=== PATIENT | female | born 1955 | race Caucasian/White ===

== ENCOUNTER 2019-04-04 12:58 | Emergency (ER) | payer OTHER ==
[~2019-04-04] VITALS: Ht 170.2 cm; Wt 69.9 kg
--- OUTSIDE RECORDS SUMMARY | 2019-04-04 13:01 | XMS REPORT | Continuity of Care Document ---
Author Author [facility] Interface Address Unknown Phone Unavailable Problems Problem Status Onset Date Classification Date Reported Comments Source Other chronic pain Active Diagnosis 12/10/2017 [facility] Gastroesophageal reflux disease without esophagitis Active Diagnosis 12/10/2017 [facility] Hypothyroidism Active Diagnosis 12/10/2017 [facility] Primary Anxiety and depression Active Problem 12/10/2017 [facility] Primary Psoriasis Active Problem 12/10/2017 [facility] Primary Psoriatic arthritis Active Problem 12/10/2017 [facility] Primary Pain, unspecified Active Problem 12/10/2017 [facility] Primary Medications Medication Details Route Status Patient Instructions Ordering Provider Order Date Source Lexapro 1 tablet Orally Active 10 mg Orally Once every morning [facility] 12/09/2017 [facility] Amitriptyline HCl 1 tablet Orally Active 10 mg Orally Once every evening [facility] 12/09/2017 [facility] Primary Lomotil not defined NA Active [facility] Promethazine HCl 1 tablet as needed Orally Active 25 MG Orally every 12 hrs [facility] Alprazolam 1 tablet Orally Active 1 MG Orally Twice a day [facility] [place] 1 tablet as needed Orally Active 10-325 MG Orally every 6 hrs [facility] Ambien CR 1 tablet at bedtime as needed Orally Active 12.5 MG Orally Once a day [facility] Synthroid 1 tablet on an empty stomach in the morning Orally Active 25 MCG Orally Once a day [facility] Cosentyx not defined NA Active 350 mg daily [facility] Vyvanse 1 capsule in the morning Orally Active 70 MG Orally Once a day [facility] Omeprazole 1 capsule Orally Active 10 MG Orally Once a day [facility] Primary Allergies, Adverse Reactions, Alerts Substance Category Reaction Severity Reaction type Status Date Reported Comments Source N.K.D.A. Adverse Reaction Info Not Available Adverse Reaction Active 12/09/2017 [facility] Immunizations Immunization Date Given Site Status Last Updated Comments Source Results Order Name Results Value Reference Range Date Interpretation Comments Source Vital Signs Vital Sign Value Date Comments Source Weight 152.0 12/09/2017 [facility] Height 68 12/09/2017 [facility] Temperature Oral (F) 97.8 F 12/09/2017 [facility] Heart Rate 92 12/09/2017 [facility] Diastolic (mm Hg) 88 12/09/2017 [facility] Systolic (mm Hg) 139 12/09/2017 [facility] Primary Encounters Location Location Details Encounter Type Encounter Number Reason For Visit Attending Provider ADM Date DC Date Status Source Procedures Procedure Code Date Perfomer Comments Source
--- OUTSIDE RECORDS SUMMARY | 2019-04-04 13:01 | XMS REPORT ---
Author Author Delilah Nguyen [facility] eClinicalWorks Address Unknown Phone Unavailable Care Team Providers Care Radioactive Waste Disposal Dispatcher Name Role Phone Delilah Nguyen CP Unavailable Allergies, Adverse Reactions, Alerts Substance Reaction Event Type N.K.D.A. Info Not Available Non Drug Allergy Problems Problem Type Condition Code Onset Dates Condition Status Assessment Other chronic pain G89.29 Active Assessment Gastroesophageal reflux disease without esophagitis K21.9 Active Assessment Hypothyroidism (acquired) E03.9 Active Problem Anxiety and depression F41.8 Active Problem Other chronic pain G89.29 Active Problem Psoriasis L40.9 Active Problem Hypothyroidism (acquired) E03.9 Active Problem Psoriatic arthritis L40.50 Active Problem Pain, unspecified R52 Active Problem Gastroesophageal reflux disease without esophagitis K21.9 Active Assessment Anxiety and depression F41.8 Active Assessment Psoriatic arthritis L40.50 Active Assessment Psoriasis L40.9 Active Assessment Pain, unspecified R52 Active Medications Medication Code System Code Instructions Start Date End Date Status Dosage Lomotil [facility] [address]-20 Active not defined Promethazine HCl [facility] 35215596048 25 MG Orally every 12 hrs Active 1 tablet as needed Alprazolam [facility] 23063004061 1 MG Orally Twice a day Active 1 tablet [place] [facility] 33992015104 10-325 MG Orally every 6 hrs Active 1 tablet as needed Ambien CR [facility] 90735631496 12.5 MG Orally Once a day Active 1 tablet at bedtime as needed Synthroid [facility] 17342154798 25 MCG Orally Once a day Active 1 tablet on an empty stomach in the morning Cosentyx [facility] [address]-30 350 mg daily Active not defined Lexapro [facility] 74928262772 10 mg Orally Once every morning Dec 09, 2017 Active 1 tablet Amitriptyline HCl [facility] 20257177299 10 mg Orally Once every evening Dec 09, 2017 Active 1 tablet Vyvanse [facility] 22641507370 70 MG Orally Once a day Active 1 capsule in the morning Omeprazole [facility] 81423610655 10 MG Orally Once a day Active 1 capsule Vital Signs Date/Time: Dec 09, 2017 BMI 23.11 Index Weight 152.0 lbs Height 68 in Temperature 97.8 F Cardiac Monitoring Heart Rate 92 /min Blood Pressure Diastolic 88 mm Hg Blood Pressure Systolic 139 mm Hg Results No Known Results Summary Purpose eClinicalWorks Submission
--- OUTSIDE RECORDS SUMMARY | 2019-04-04 13:01 | XMS REPORT | Clinical Summary ---
Author Author [facility] Address Unknown Phone Unavailable Care Team Providers Care Roadmaster Name Role Phone Asked, No Pcp PCP Unavailable Allergies No Known Allergies Medications End Date Status Medication Sig Dispensed Refills Start Date Active zolpidem CR (AMBIEN CR) Take by 0 12.5 MG CR tablet mouth. Active alendronate (FOSAMAX) 35 Take 35 mg by 1 MG tablet mouth once a 6 week. Active ALPRAZolam (XANAX) 1 MG Take 1 mg by 0 tablet mouth 3 6 (three) times a day. Active celecoxib (CeleBREX) 200 0 MG capsule 6 Active diphenoxylate-atropine Take 1 tablet 0 (LOMOTIL) 2.5-0.025 mg by mouth once 6 per tablet daily. Active VITAMIN D2 50,000 unit TAKE 1 1 capsule CAPSULE BY 6 MOUTH WEEKLY Active estradiol (ESTRACE) 1 MG Take 1 mg by 0 tablet mouth once 6 daily. Active folic acid (FOLVITE) 1 MG Take 1 mg by 1 tablet mouth once 6 daily. Active liothyronine (CYTOMEL) 5 Take 5 mcg by 0 MCG tablet mouth once 6 daily. Active VYVANSE 50 mg capsule Take 50 mg by 0 mouth once 6 daily. Active methocarbamol (ROBAXIN) Take 750 mg 0 750 MG tablet by mouth 2 6 (two) times a day. Active tramadol-acetaminophen TAKE 1-2 1 (ULTRACET) 37.5-325 mg TABLET(S) BY 6 per tablet MOUTH EVERY 4 TO 6 HOURS NEEDED FOR PAIN Active gabapentin (NEURONTIN) 0 300 mg capsule 8 Active MOVANTIK 25 mg tablet 1 tablet 8 Active promethazine (PHENERGAN) 0 25 MG tablet 8 04/06/2018 aspirin (ECOTRIN) 81 MG Take 1 tablet 84 tablet 0 enteric coated tablet (81 mg total) 8 by mouth 2 (two) times a day for 42 days. Active Problems Problem Noted Date Osteoarthritis of right hip 02/22/2018 Osteoarthritis of left hip 06/09/2016 Social History Date Tobacco Use Types Packs/Day Years Used Never Smoker Smokeless Tobacco: Never Used Alcohol Use Drinks/Week oz/Week Comments No Sex Assigned at Date Recorded Not on file Industry Job Start Date Occupation Not on file Not on file Not on file Travel End Travel History Travel Start No recent travel history available. Last Filed Vital Signs Not on file Plan of Treatment Health Maintenance Due Date Last Done Comments BREAST CANCER SCREENING 2005 COLON CANCER SCREENING 2005 SHINGLES VACCINES (#1) 2005 INFLUENZA VACCINE 06/08/2019 Implants Device Identifier Shelf Expiration Date Model / Serial / Lot Implanted Type Area Manufactur er Hip Implant System Hip Implant System Hip Implant System Hip Implant System 04/22/2026 650 1057 / / [id number] Head Fml Cermc 36mm Biolox Delta Hip Joint Left: Hip [employer] Option - [id number] Implants Implanted: Qty: 1 on 06/09/2016 by Maynor Contreras MD 02/05/2018 [id number] / [id number] / [id number] Putty Dbm Dbx 1cc - Human Right: Hip MUSCULOSKE [id number] - [id number] Tissue LETAL Implanted: Qty: 1 on 08/17/2016 by Implants TRANSPLANT Maynor Contreras MD [facility] 03/18/2021 [id number] / / [id number] Neutral E1 Liner 36mm E - IPM Left: Hip BIOMET, [id number] IMPLANT INC Implanted: Qty: 1 on 06/09/2016 by DEVICES Maynor Contreras MD 03/12/2026 [id number] / / [id number] Hole G7 Osseoti Acetabular Shell IPM Left: Hip BIOMET, - [id number] IMPLANT INC Implanted: Qty: 1 on 06/09/2016 by DEVICES Maynor Contreras MD 03/08/2026 [id number] / / [id number] Tprlc 133 Type1 Pps So 10.0 IPM Left: Hip BIOMET, Taperloc Complete Stem - [id number] IMPLANT INC Implanted: Qty: 1 on 06/09/2016 by Maynor Barclay MD 07/09/2022 [id number] / / [id number] Neutral E1 Liner 40mm F - IPM Right: Hip BIOMET, [id number] IMPLANT INC Implanted: Qty: 1 on 02/22/2018 by Maynor Barclay MD 12/09/2027 [id number] / / [id number] Osseoti Ltd Hole Shell 54mm - IPM Right: Hip BIOMET, [id number] IMPLANT INC Implanted: Qty: 1 on 02/22/2018 by Maynor Barclay MD 10/08/2027 51 [id number] / / [id number] Tprlc 133 Type1 Pps Ho 10.0, IPM Right: Hip BIOMET, Taperloc Complete Stem - [id number] IMPLANT INC Implanted: Qty: 1 on 02/22/2018 by DEVICES Maynor Contreras MD 08/07/2026 800 0541 / / [id number] Core Decompression Disp Hip - IPM Right: Hip BIOMET, [id number] SUPPLIES INC Implanted: Qty: 1 on 08/17/2016 by PATIENT Maynor Contreras MD NON-BILLAB LE 06/07/2019 800 [id number] / / [id number] Gps Iii Single Kit W/30ml Acda, IPM Right: Hip BIOMET, Orthobiologics - [id number] SUPPLIES INC Implanted: Qty: 1 on 08/17/2016 by PATIENT Maynor Contreras MD NON-BILLAB LE 02/03/2026 650 1066 / / [id number] Sleeve Head Ceramc Option Type I Orthopedic Left: Hip [employer] Taper Std - [id number] Trauma Implanted: Qty: 1 on 06/09/2016 by Implants Maynor Contreras MD 10/08/2027 650 1066 / / [id number] Sleeve Head Ceramc Option Type I Orthopedic Right: Hip [employer] Taper Std - [id number] Trauma Implanted: Qty: 1 on 02/22/2018 by Implants Maynor Contreras MD 05/08/2027 [facility] 1058 / / [id number] Head Feml Ceramc Type 1 Taperd Orthopedic Right: Hip [employer] Option 40mm Biolox Delta - Trauma [id number] Implants Implanted: Qty: 1 on 02/22/2018 by Maynor Contreras MD Results Not on fileafter 04/03/2018 Insurance Type Payer Benefit Subscriber ID Effective Phone Address Plan / Dates Group HMO AETNA AETNA xxxxxxxxxx 2006-P HMO,POS,EP resent O, MC/EC Advance Directives Patient has advance care planning documents on file. For more information, savanna mustafa contact: Jose Manuel Joseu [address] [place] [address]
--- OUTSIDE RECORDS SUMMARY | 2019-04-04 13:06 | XMS REPORT | Clinical Summary ---
Author Author [facility] Address Unknown Phone Unavailable Care Team Providers Care Rose Grading Supervisor Name Role Phone Asked, No Pcp PCP [...] Implant System 04/22/2026 650 1057 / / [id number] Head Fml Cermc 36mm Biolox Delta Hip Joint Left: Hip [employer] Option - [id number] Implants Implanted: Qty: 1 on 06/09/2016 by Maynor Contreras MD 02/05/2018 [id number] / [id number] / [id number] Putty Dbm Dbx 1cc - Human Right: Hip MUSCULOSKE [id number] - [id number] Tissue LETAL Implanted: Qty: 1 on 08/17/2016 by Implants TRANSPLANT Maynor Contreras MD [facility] 03/18/2021 [id number] / / [id number] Neutral E1 Liner 36mm E - IPM Left: Hip BIOMET, [id number] IMPLANT INC Implanted: Qty: 1 on 06/09/2016 by DEVICES Maynor Contreras MD 03/12/2026 [id number] / / [id number] Hole G7 Osseoti Acetabular Shell IPM Left: Hip BIOMET, - [id number] IMPLANT INC Implanted: Qty: 1 on 06/09/2016 by DEVICES Maynor Contreras MD 03/08/2026 [id number] / / [id number] Tprlc 133 Type1 Pps So 10.0 IPM Left: Hip BIOMET, Taperloc Complete Stem - [id number] IMPLANT INC Implanted: Qty: 1 on 06/09/2016 by Maynor Barclay MD 07/09/2022 [id number] / / [id number] Neutral E1 Liner 40mm F - IPM Right: Hip BIOMET, [id number] IMPLANT INC Implanted: Qty: 1 on 02/22/2018 by Maynor Barclay MD 12/09/2027 [id number] / / [id number] G7 [employer]se[employer] Ltd Hole Shell 54mm - IPM Right: Hip BIOMET, [id number] IMPLANT INC Implanted: Qty: 1 on 02/22/2018 by Maynor Barclay MD 10/08/2027 51 [id number] / / [id number] Tprlc 133 Type1 Pps Ho 10.0, IPM Right: Hip BIOMET, Taperloc Complete Stem - [id number] IMPLANT INC Implanted: Qty: 1 on 02/22/2018 by DEVICES Maynor Contreras MD 08/07/2026 800 0541 / / [id number] Core Decompression Disp Hip - IPM Right: Hip BIOMET, [id number] SUPPLIES INC Implanted: Qty: 1 on 08/17/2016 by PATIENT Maynor Contreras MD NON-BILLAB LE 06/07/2019 800 [id number] / / [id number] Gps Iii Single Kit W/30ml Acda, IPM Right: Hip BIOMET, Orthobiologics - [id number] SUPPLIES INC Implanted: Qty: 1 on 08/17/2016 by PATIENT Maynor Contreras MD NON-BILLAB LE 02/03/2026 650 1066 / / [id number] Sleeve Head Ceramc Option Type I Orthopedic Left: Hip [employer] Taper Std - [id number] Trauma Implanted: Qty: 1 on 06/09/2016 by Implants Maynor Contreras MD 10/08/2027 650 1066 / / [id number] Sleeve Head Ceramc Option Type I Orthopedic Right: Hip [employer] Taper Std - [id number] Trauma Implanted: Qty: 1 on 02/22/2018 by Implants Maynor Contreras MD 05/08/2027 [facility] 1058 / / [id number] Head Feml Ceramc Type 1 Taperd Orthopedic Right: Hip [employer] Option 40mm Biolox Delta - Trauma [id number] Implants Implanted: Qty: 1 on 02/22/2018 by Maynor Contreras MD Results Not on fileafter 04/03/2018 Insurance Type Payer Benefit Subscriber ID Effective Phone Address Plan / Dates Group HMO AETNA AETNA xxxxxxxxxx 2006-P HMO,POS,EP resent O, MC/EC Advance Directives Patient has advance care planning documents on file. For more information, savanna mustafa contact: Jose Manuel Josue [address] [place] [address]
[2019-04-04] MEDS ORDERED: KETOROLAC TROMETHAMINE 30 MG/ML VIAL IV STA (13:14)
[2019-04-04] MEDS ORDERED: GABAPENTIN 300 MG CAP PO ONE (13:15)
[2019-04-04 16:12] LABS: BASOPHILS % 0.4 % (0.0-1.0); EOSINOPHILS # (AUTO) 0.1 (0.0-0.4); EOSINOPHILS % 0.8 % (0.0-6.0); HEMATOCRIT 42.6 % (34.2-44.1); HEMOGLOBIN 13.7 g/dL (12.0-16.0); LYMPHOCYTES # (AUTO) 2.2 (1.0-3.2); LYMPHOCYTES % 29.6 % (18.0-39.1); MEAN CORPUSCULAR HEMOGLOBIN 26.7 pg (28-32); MEAN CORPUSCULAR HGB CONC 32.2 g/dL (31-35); MEAN CORPUSCULAR VOLUME 82.9 fL (81-99); MONOCYTES # (AUTO) 0.4 (0.2-0.8); MONOCYTES % 5.9 % (4.4-11.3); NEUTROPHILS # (AUTO) 4.7 (2.1-6.9); NEUTROPHILS % 62.9 % (38.7-80.0); PLATELET COUNT 261 x10e3/uL (140-360); RED BLOOD COUNT 5.14 x10e6/uL (3.6-5.1); RED CELL DISTRIBUTION WIDTH 14.8 % (11.7-14.4)
[2019-04-04 16:29] LABS: ALANINE AMINOTRANSFERASE 9 IU/L (0-55); ALBUMIN 3.7 g/dL (3.5-5.0); ALBUMIN/GLOBULIN RATIO 1.1 (0.8-2.0); ALKALINE PHOSPHATASE 93 IU/L (40-150); ANION GAP 10.7 mmol/L (8-16); BLOOD UREA NITROGEN 11 mg/dL (7-26); BUN/CREATININE RATIO 15 (6-25); CALCIUM 9.6 mg/dL (8.4-10.2); CARBON DIOXIDE 25 mmol/L (22-29); CHLORIDE 106 mmol/L (98-107); CREATININE, SERUM 0.75 mg/dL (0.57-1.11); EST GLOMERULAR FILTRATION RATE > 60 ML/MIN (60-); GLUCOSE 89 mg/dL (74-118); POTASSIUM 3.7 mmol/L (3.5-5.1); SODIUM 138 mmol/L (136-145)
[2019-04-04 16:43] LABS: ERYTHROCYTE SEDIMENTATION RATE 23 mm/hr (0-20)
[2019-04-04] MEDS ORDERED: SODIUM CHLORIDE 0.9% 250ML 250 ML ONE (17:34)
[2019-04-04] MEDS: DEXAMETHASONE SOD PHOS 10 MG/1 ML VIAL INJ NR ×2 (17:37→17:47)
== END 2019-04-04 18:02 | disposition home or self-care (01) ==
LOC: ER 13:04
DX: M79.7 Fibromyalgia (principal); L40.9 Psoriasis, unspecified; M10.9 Gout, unspecified
CPT/HCPCS: 36415; 80053; 85025; 85651; 99284; J1100; J1885; J7050